=== PATIENT | female | born 1995 | race African-American/Black ===

== ENCOUNTER 2016-10-12 17:37 | Emergency (ER) | payer SELFPAY ==
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
== END 2016-10-12 19:08 | disposition home or self-care (01) ==
LOC: CFTX 17:37 → CED 17:37 → CFTX 19:08
DX: S33.5XXA Sprain of ligaments of lumbar spine, initial encounter (principal); S80.02XA Contusion of left knee, initial encounter; S80.01XA Contusion of right knee, initial encounter; V43.62XA Car passenger injured in collision with other type car in traffic accident, initial encounter; Y92.410 Unspecified street and highway as the place of occurrence of the external cause
CPT/HCPCS: 29530; 72100; 73562; 84703; 99284